=== PATIENT | male | born 1965 | race African-American/Black ===

== ENCOUNTER → 2017-03-05 | Outpatient (CLI) | payer OTHER ==
[~2017-03-05] VITALS: Ht 188 cm; Wt 116.6 kg
[~2017-03-05] MED LIST: ASPIRIN E.C. 8181 MG PO; CIALIS10 MG PO; DIABETA 5MG5 MG/TAB PO; FISH OIL 1000MG1 CAP PO; GLUCOPHAGE1000 MG PO; PRAVACHOL10 MG PO; PRINIVIL10 MG PO; ZYLOPRIM 100MG100 MG PO
[2017-03-05 08:56] VITALS: BP 122/90; PULSE 75
== END ==
LOC: COL.CARD 08:36
DX: I10 Essential (primary) hypertension (principal); R07.89 Other chest pain; E78.4 Other hyperlipidemia; E11.9 Type 2 diabetes mellitus without complications
CPT/HCPCS: A9502

== ENCOUNTER 2024-10-18 15:59 | Observation (INO) | payer OTHER ==
[~2024-10-18] VITALS: Ht 185.4 cm; Wt 115.0 kg
[2024-10-18] MEDS ORDERED: JANUVIA25 MG PO (17:01)
[2024-10-18] MEDS ORDERED: XARELTO10 MG PO (17:02)
[2024-10-18] MEDS ORDERED: VOLTAREN GEL 1%1 TU TP (17:19)
--- NOTE | 2024-10-18 17:28 | NUR ---
1630-PT ARRIVED FROM [facility] BY PERSONAL VEHICLE. PT ORIENTED TO ROOM AND FLOOR. VSS. ADMISSION, HISTORY AND MED LIST COMPLETED. 1645- NOTIFIED OF PTS ARRIVAL. PT NPO FOR OR. 1715-[facility] D/T DIFFICULT STICK AND PT REQUESTING. 1720- BEDSIDE.
[2024-10-18] MEDS ORDERED: LEVEMIR SQ (17:38)
[2024-10-18] MEDS ORDERED: 1/2 NS 1,000 ML IV SCH (17:45)
[2024-10-18] MEDS ORDERED: Lidocaine 2% (20 MG/ML) 20 ML UROJET UR ONE ×2 (18:13→19:19)
[2024-10-18] MEDS ORDERED: Iohexol 300 - 10 ML VIAL URETER -L ONE (18:13)
[2024-10-18] MEDS ORDERED: Ondansetron 4 MG/2 ML VIAL ONE (18:22)
[2024-10-18] MEDS ORDERED: Lidocaine PF 2% (20 MG/ML) 5 ML VIAL ONE (18:22)
[2024-10-18] MEDS ORDERED: Ondansetron 4 MG/2 ML VIAL IV PRN (18:30)
[2024-10-18] MEDS ORDERED: hydrALAZINE 20 MG/ML 1 ML VIAL IV PRN (18:30)
[2024-10-18] MEDS ORDERED: HYDROmorphone 1 MG/1 ML SYRINGE [PACU/SDC ONLY] IV PRN (18:30)
[2024-10-18] MEDS ORDERED: fentaNYL 50 MCG/ML 1 ML SYRINGE/VIAL [PACU/SDC ONLY] IV PRN (18:30)
[2024-10-18] MEDS ORDERED: droPERidol 2.5 MG/ML 2 ML VIAL IV PRN (18:30)
[2024-10-18] MEDS ORDERED: fentaNYL 50 MCG/ML 2 ML VIAL ONE (19:09)
[2024-10-18] MEDS ORDERED: Hyoscyamine 0.125 MG Sublingual TAB SL PRN (19:15)
[2024-10-18] MEDS ORDERED: oxyCODONE/Acetaminophen 5-325 MG TAB PO PRN (19:15)
[2024-10-18 20:30] VITALS: BP 135/78; PULSE 84; TEMP 98.4
[2024-10-18 20:45] VITALS: BP 137/72; PULSE 83
[2024-10-18 21:00] VITALS: BP 144/71; PULSE 82
--- NOTE | 2024-10-18 21:13 | NUR ---
PT ARRIVED BACK FROM SURGERY AT 2004. VITALS STABLE. PT HAS GOTTEN UP AND VOIDED AND TOLERATING PO. GOT VERBAL DISHARGE ORDERS FROM DR KU.
[2024-10-18 21:15] VITALS: BP 141/70; PULSE 86
--- NOTE | 2024-10-18 22:15 | NUR ---
WAS UNABLE TO PRINT OUT PT DISCHARGE INSTRUCTIONS BUT GOT VERBAL DISCHARGE ORDERS FROM [facility] AND DRYING ROOM SUPERVISOR WAS NOT ABLE TO FINALIZE DISCHARGE BUT SAID TO GO AHEAD AND PRINT PATIENT INSTRUCT AND PT COULD DISCHARGE. PT VITALS STILL STABLE. PT HAS BURNING WHILE URINATING BUT NO OTHER PAIN. GAVE PT AZO. WENT OVER PT INSTRUCT WITH PATIENT AND . PCT ESCORTED PT OUT IN WHEELCHAIR TO [facility] CAR.
[2024-10-19] MEDS ORDERED: Influenza Virus Vaccine, Trivalent '24-25 0.5 ML SYRINGE IM SCH (09:00)
== END 2024-10-18 22:25 | disposition home or self-care (01) ==
LOC: SURG 15:59
PROVIDERS: ADMIT Urology
DX: N20.1 Calculus of ureter (principal); N17.9 Acute kidney failure, unspecified; G47.33 Obstructive sleep apnea (adult) (pediatric); Z79.01 Long term (current) use of anticoagulants; Z87.891 Personal history of nicotine dependence; Z86.711 Personal history of pulmonary embolism; Z86.718 Personal history of other venous thrombosis and embolism; Z79.82 Long term (current) use of aspirin; Z79.84 Long term (current) use of oral hypoglycemic drugs
CPT/HCPCS: C1769; C2617; G0378; G0379; J0690; J2405; J2704; J3010; Q9967